=== PATIENT | female | born 1965 | race Caucasian/White ===

== ENCOUNTER → 2025-02-15 15:58 | Outpatient (BNVA) | payer SELFPAY | PROVIDERS: PCP Nurse Practitioner Family; Visit Provider Orthopaedic Surgery | DX: S22.080A Wedge compression fracture of T11-T12 vertebra, initial encounter for closed fracture (principal); S32.020A Wedge compression fracture of second lumbar vertebra, initial encounter for closed fracture; X58.XXXA Exposure to other specified factors, initial encounter | CPT/HCPCS: 72072; 72100 ==

== ENCOUNTER 2025-03-01 11:04 | Outpatient (CLI) | payer SELFPAY ==
--- NOTE | 2025-03-01 10:30 | CT_ITS ---
WS: [id number] CT ABDOMEN WITHOUT CONTRAST HISTORY: abdomen pain Contiguous single phase 5 mm axial imaging performed to the abdomen. Oral contrast has not been provided. Coronal and sagittal reformats are submitted. All CT scans at [facility] use at least one of these dose optimization techniques: automated exposure control; mA and/or kV adjustment per patient size (includes targeted exams where dose is matched to clinical indication); or iterative reconstruction. IV CONTRAST: None Oral contrast: No DLP: 130.43 mGy.cm COMPARISON: None available. Lower thorax: Hyperinflated lung bases with centrilobular emphysema. Mild pleural thickening along the RIGHT diaphragmatic surface. No mass or pneumonia. Heart is normal size. Moderate sized hiatal hernia. Liver/biliary system: Normal size with no intrahepatic dilatation. Gallbladder: Normal. No gallstones or wall thickening. No pericholecystic fluid. Pancreas: Normal size pancreas and pancreatic duct. No adjacent inflammation. Spleen: Normal size spleen. No mass or infarct. Adrenal glands: Normal. Right kidney: Normal. Left kidney: Normal. Aorta: Mild atherosclerosis with no aneurysm. Lymphadenopathy: None. Free fluid: None. GI tract: GI tract within the abdomen is negative. No obstruction. Abdominal wall: Unremarkable abdominal wall. No hernia. Visualized osseous structures: Severe osteopenia and degenerative changes in the thoracolumbar spine. Compression fractures at T11, L1 and L2. Retropulsion of L1 by 5 mm with encroachment upon the ventral thecal sac, greatest to the RIGHT. Nondisplaced fracture posterior medial RIGHT T11 rib. Additional fracture suspected involving the base of the pedicle LEFT T11 vertebral body. Facet joint displacement may be present on the LEFT at T10-11. Thoracic spine CT is also been requested. Additional multiple left-sided rib fractures including sixth, seventh, eighth and 10th ribs. CT/CT abdomen wo con [id number] IMPRESSION: 1. No acute abdominal or pelvic abnormalities. 2. No visualized GI tract obstruction within the abdomen. 3. No renal obstruction. 4. Osteopenia with advanced degenerative changes in the thoracolumbar spine. 5. Compression fractures at T11, L1 and L2. Retrolisthesis of L1 by 5 mm encro aching upon the thecal sac. 6. Fracture at the base of the LEFT T11 pedicle. Possible partial subluxation of the facet joint at T10-11 on the LEFT. 7. Multiple rib fractures as described above.
--- NOTE | 2025-03-01 10:30 | CTR_ITS ---
PROCEDURE INFORMATION: Exam: CT Thoracic Spine Without Contrast Exam date and time: 03/01/2025 11:39 AM Age: 60 years old Clinical indication: Condition or disease; Other: Compression fracture TECHNIQUE: Imaging protocol: Computed tomography of the thoracic spine without contrast. Radiation optimization: All CT scans at this facility use at least one of these dose optimization techniques: automated exposure control; mA and/or kV adjustment per patient size (includes targeted exams where dose is matched to clinical indication); or iterative reconstruction. COMPARISON: CR XR thoracic spine 3V* [id number] 02/15/2025 4:00 PM RADIATION DOSE METRICS: Total DLP (mGy-cm): 358.12 FINDINGS: Bones/joints: There is compression deformity involving the T9 superior endplate. No significant retropulsed bony fragment. There is T10 vertebral body inferior endplate compression deformity. No significant retropulsed bony fragment. There is a T11 compression fracture. There is a questionable lytic lesion involving the T11 vertebral body. There is a loss of posterior vertebral body cortex. There is a 4 mm retropulsed bony fragment. There are fractures involving bilateral pedicles. Neural foraminal narrowing is seen at the T11-12 level. chronic appearing L1 compression deformity is seen. Soft tissues: Unremarkable. Vasculature: Mild calcified atherosclerotic changes are seen in the thoracic aorta. Lymph nodes: Shotty mediastinal lymph nodes. Esophagus: There is esophageal wall thickening diffusely. CT/CT thoracic spin wo con* [id number] IMPRESSION: 1. Questionable pathological compression fracture involving the T11 vertebral body with a 4 mm retropulsed bony fragment. Bilateral pedicle fractures. Bilateral neural foraminal narrowing at T11-12 level. 2. Age indeterminate compression deformities involving the T9 and T10 vertebral bodies as described. Clinical correlation is advised. If indicated, MRI can be obtained for further evaluation. 3. Mild calcified atherosclerotic changes are seen in the thoracic aorta. 4. There is esophageal wall thickening diffusely. Esophagitis or underlying mucosal lesion can not be excluded. Clinical correlation is advised.
== END 2025-03-01 11:05 | disposition home or self-care (01) ==
LOC: RAD 11:04
PROVIDERS: PCP Nurse Practitioner Family; Visit Provider Orthopaedic Surgery
DX: S22.080A Wedge compression fracture of T11-T12 vertebra, initial encounter for closed fracture (principal); S32.020A Wedge compression fracture of second lumbar vertebra, initial encounter for closed fracture; S32.030A Wedge compression fracture of third lumbar vertebra, initial encounter for closed fracture; S22.42XA Multiple fractures of ribs, left side, initial encounter for closed fracture; I70.0 Atherosclerosis of aorta; M85.88 Other specified disorders of bone density and structure, other site; X58.XXXA Exposure to other specified factors, initial encounter
CPT/HCPCS: 72128; 74150

== ENCOUNTER → 2025-03-06 12:36 | Outpatient (BNVA) | payer SELFPAY | PROVIDERS: PCP Nurse Practitioner Family; Visit Provider Orthopaedic Surgery | DX: Z01.818 Encounter for other preprocedural examination (principal) | CPT/HCPCS: 36415; 80053; 85025 ==

== ENCOUNTER 2025-03-07 18:25 | Inpatient (IN) | payer SELFPAY ==
--- OUTSIDE RECORDS SUMMARY | 2018-07-07 06:36 | XMS_ITS | Continuity of Care Document ---
Author Organization [facility] Address [address] [place] [address] Phone Care Team Providers Care Collator Operator Name Role Phone Valerie WYNNE, Odell Unavailable Unavailabl e Advance Directives Directive Yes / No Effective Date File Name No Information Encounters Encounter Description Practice Location Reason(s) For Visit Diagnoses Date Provider Providers Copied on Encounter [facility], [address] [facility], [place], [place], [id number], [place] tel:[phone] [facility] No Information 0-201 9 Valerie Bain . [address], [address], [place], [place], [id number] , [place]. tel:[phone] Family History Family Member Type Diagnosis Age At Onset No Information Payers Payer name Insurance type Covered democrat ID Authoriza tion(s) No Information Social History Type Description Quantity Date Captured Comments Sex Male Smoking Status No Information Chief Complaint And Reason For Visit No Information Reason For Referral Reason For Referral No Information History Of Present Illness Encounter Date Complaint History Of Prese nt Illness No Information Functional Status Date Functional Assessmen t No Information Instructions Date Instruction Additional Infor mation No Information Assessments Type Assessment Date No Information Patient Care Teams Name Effective Dates (start - stop) Status Members No Information
--- OUTSIDE RECORDS SUMMARY | 2018-07-07 06:36 | XMS_ITS | Continuity of Care Document ---
Author Organization [facility] Address [address] [place] [address] Phone Care Team Providers Care Customer Service Attendant Name Role Phone Valerie WYNNE, Odell Unavailable Unavailabl e Advance Directives Directive Yes / No Effective Date File Name No Information Encounters Encounter Description Practice Location Reason(s) For Visit Diagnoses Date Provider Providers Copied on Encounter [facility], [address] [facility], [place], [place], [id number], [place] tel:[phone] [facility] [place] No Information [phone] Valerie Bain . [address], [address], [place], [place], [address] , [place]. tel:[phone] Family History Family Member Type Diagnosis Age At Onset No Information Payers Payer name Insurance type Covered constitution party ID Authoriza tion(s) No Information Social History [...]
[2025-03-07] VITALS (16 sets, daily range): BP systolic 92–122; BP diastolic 57–87; PULSE 68–94; RESP 10–18; TEMP 36.1–36.4; O2SAT 98–100; BMI 20.7
--- NOTE | 2025-03-07 | SC_ITS ---
WS: [id number] INTRAOPERATIVE TECHNIQUE: 3 Spot fluoroscopic images for intraoperative purposes. FLUOROSCOPY TIME: 24.9 seconds CLINICAL INFORMATION: OR PICS FINDINGS: Images obtained for intraoperative thoracic fusion and kyphoplasty SC/C-arm FL for Kyphoplasty IMPRESSION: Images obtained for intraoperative purposes.
--- NOTE | 2025-03-07 10:25 | XR_ITS ---
WS: [id number] INTRAOPERATIVE TECHNIQUE: 8 Spot fluoroscopic images for intraoperative purposes. FLUOROSCOPY TIME: 25 seconds CLINICAL INFORMATION: or pic, fusion FINDINGS: Images obtained for intraoperative spinal fusion purposes XR/XR thoracic spine 2V [id number] IMPRESSION: Images obtained for intraoperative purposes.
--- NOTE | 2025-03-07 11:40 | XR_ITS ---
WS: [id number] INTRAOPERATIVE TECHNIQUE: 2 Spot fluoroscopic images for intraoperative purposes. FLUOROSCOPY TIME: 38 seconds CLINICAL INFORMATION: T 11 BIOPSY FINDINGS: Intraoperative imaging for thoracic fusion and T11 biopsy XR/XR thoracic spine 2V [id number] IMPRESSION: Images obtained for intraoperative purposes.
[2025-03-07 13:32] LABS: Hematocrit 40.7 % (36-47); Hemoglobin 14.20 g/dL (11.27-16.99); Mean Corpuscular HGB Conc 34.9 g/dL (30-55); Mean Corpuscular Hemoglobin 33.7 pg (27-33); Mean Corpuscular Volume 96.7 fl (85-98); Nucleated Red Blood Cells % 0 %; Platelet Count 469 10^3/cmm (157-399); Red Blood Count 4.21 10^6/uL (3.85-5.65); White Blood Count 14.29 10^3/uL (3.29-11.43)
[2025-03-07 13:54] LABS: Alanine Aminotransferase 8 U/L (0-33); Albumin Level 2.9 g/dL (3.5-5.2); Alkaline Phosphatase 148 U/L (35-105); Anion Gap 15.7 (5-19); Aspartate Amino Transferase 17 U/L (0-32); Blood Urea Nitrogen 3 mg/dL (8-23); Calcium 8.6 mg/dL (8.5-10.5); Carbon Dioxide 24 mmol/L (22-29); Chloride 100 mmol/L (98-107); Creatinine Clr Calc Pharmacy 134.2991; Globulin 3.3 g/dL (1.3-4.6); Glucose 86 mg/dL (65-115); Osmolality Calculated 278 mOsm/kg (285-295); Potassium 3.7 mmol/L (3.5-5.1); Sodium 136 mmol/L (136-145); Total Protein 6.2 g/dL (6.6-8.7)
--- NOTE | 2025-03-07 13:56 | ANES.PREANE2 ---
Pre-Anesthetic Assessment Height/Weight: Height 1.65 m Weight 56.699 kg Temp Pulse Resp BP Pulse Ox O2 Del Method 97.3 F L 94 18 122/87 100 Room Air 03/07/25 12:15 03/07/25 12:15 03/07/25 12:15 03/07/25 12:15 03/07/25 12:15 03/07/25 12:15 Preop Diagnosis: T11 fracture Operation Date: 03/07/25 13:20 Proposed Procedures p Thoracic Fusion(Not Applicable) - To Zamora DO s Lumbar Fusion(Not Applicable) - To Zamora DO s Spine Decompression Thoracic Spine Decompression(Not Applicable) - To Zamora DO s Thoracic Kyphoplasty(Not Applicable) - To Zamora DO Familial anesthetic complications: None Was Beta Kelly taken within 24 hours: N/A Was Clonidine taken within 24 hours: N/A Last intake: Intake Last Liquid Date 03/06/25 Last Liquid Time 23:30 Last Solid Date 03/06/25 Last Solid Time 17:00 Social Alcohol (Couple beers a day) and No tobacco (Quit a few months ago. Smoked <0.5 ppd.) Exam alert, oriented x 3, clear to auscultation bilaterally and regular rate & rhythm Airway Submandibular: Other (Small mouth opening) Cervical ROM: within normal limits Mallampati: Class II Dentition: full History/ROS No significant history except as noted and No significant complaints Pulmonary Cough CV/HEM Coronary Artery Disease and Hypertension Murmur as a baby. Not present at this time None reported Hepatic None reported GI Gastroesophageal Reflux Disease (Occ. None today) Metabolic Hyperlipidemia and Thyroid Disease [facility] None reported Neuropsych Anxiety and Depression Anesthetic Plan ASA status: 2 Anesthesia: Anesthesia Evaluation and General Other: A-line ok, ok with blood if needed Risk of > 500 ml blood loss (7ml/kg in children): Yes, adequate IV access and fluids planned Medications/Allergies Home Medications ?Medication ?Instructions ?Recorded ?Confirmed ?Last Taken ?Type amlodipine 5 mg tablet 5 mg PO DAILY 03/06/25 03/07/25 03/06/25 History atorvastatin 20 mg tablet 20 mg PO DAILY 03/06/25 03/07/25 03/06/25 History bupropion HCl 150 mg 24 hr tablet, 150 mg PO QAM 03/06/25 03/07/25 03/06/25 History extended release (Wellbutrin XL) citalopram 40 mg tablet 40 mg PO DAILY 03/06/25 03/07/25 03/06/25 History ergocalciferol (vitamin D2) 1,250 1,250 mcg PO Q7D 03/06/25 03/07/25 03/06/25 History mcg (50,000 unit) capsule (Vitamin D2) levothyroxine 150 mcg tablet 150 mcg PO DAILY 03/06/25 03/07/25 03/06/25 History Allergies Allergy/AdvReac Type Severity Reaction Status Date / Time No Known Allergies Allergy Verified 03/07/25 12:27 [facility] Anesthesia Social History Smoking and tobacco/nicotine status: never used tobacco/nicotine Data Anesthesia 03/07/25 13:15 03/07/25 13:15 Short CBC 03/07/25 Range/Units 13:15 WBC 14.29 H (3.29-11.43) 10^3/uL Hgb 14.20 (11.27-16.99) g/dL Hct 40.7 (36-47) % MCV 96.7 (85-98) fl Plt Count 469 H (157-399) 10^3/cmm Neut % (Auto) 64.6 % Neut # (Auto) 9.25 H (1.8-7.7) 10^3/uL BMP 03/07/25 13:15 Sodium 136 Potassium 3.7 Chloride 100 Carbon Dioxide 24 BUN 3 L Creatinine 0.4 L Glucose 86 Calcium 8.6 Liver Function 03/07/25 Range/Units 13:15 Total Bilirubin 0.6 (0.15-1.2) mg/dL AST 17 (0-32) U/L ALT 8 (0-33) U/L Alkaline Phosphatase 148 H (35-105) U/L Albumin 2.9 L (3.5-5.2) g/dL
--- NOTE | 2025-03-07 14:09 | W.PM.OPSUD ---
Surgery/Procedure H&P Update DATE OF PROCEDURE: March 07, 2025 DATE H&P PERFORMED: 03/06/25 H&P UPDATE INFORMATION: I have reviewed H&P completed within last 30 days, I have examined patient prior to procedure and No changes to prior documentation PREOP DIAGNOSIS: T11 fracture PLANNED PROCEDURE: Operation Date: 03/07/25 13:20 Proposed Procedures p Thoracic Fusion(Not Applicable) - DO chris Eugene Lumbar Fusion(Not Applicable) - DO chris Eugene Spine Decompression Thoracic Spine Decompression(Not Applicable) - DO chris Eugene Thoracic Kyphoplasty(Not Applicable) - To Zamora DO
[2025-03-07] MEDS: ceFAZolin 2,000 mg SDV 2000 MG IVP ×2 (14:25→21:52)
--- NOTE | 2025-03-07 15:17 | ANES.PREANE2 ---
Pre-Anesthetic Assessment Height/Weight: Height 1.65 m Weight 56.699 kg Temp Pulse Resp BP Pulse Ox O2 Del Method 97.3 F L 94 18 122/87 100 Room Air 03/07/25 12:15 03/07/25 12:15 03/07/25 12:15 03/07/25 12:15 03/07/25 12:15 03/07/25 13:57 Preop Diagnosis: T11 fracture Operation Date: 03/07/25 13:20 Proposed Procedures p Thoracic Fusion(Not Applicable) - To Zamora DO s Lumbar Fusion(Not Applicable) - To Zamora DO s Spine Decompression Thoracic Spine Decompression(Not Applicable) - To Zamora DO s Thoracic Kyphoplasty(Not Applicable) - To Zamora DO Last intake: Intake Last Liquid Date 03/06/25 Last Liquid Time 23:30 Last Solid Date 03/06/25 Last Solid Time 17:00 Social No alcohol and No tobacco Airway Submandibular: Other (limited) Cervical ROM: within normal limits Mallampati: Class III Dentition: chipped Pulmonary None reported CV/HEM Hypertension GI Gastroesophageal Reflux Disease Metabolic Hyperlipidemia and Thyroid Disease (hypo) Musc/skel Lower Back Pain, Osteoarthritis/DJD and Weakness Anesthetic Plan ASA status: 2 Anesthesia: General (A-line and large bore IV access) Medications/Allergies Home Medications ?Medication ?Instructions ?Recorded ?Confirmed ?Last Taken ?Type amlodipine 5 mg tablet 5 mg PO DAILY 03/06/25 03/07/25 03/06/25 History atorvastatin 20 mg tablet 20 mg PO DAILY 03/06/25 03/07/25 03/06/25 History bupropion HCl 150 mg 24 hr tablet, 150 mg PO QAM 03/06/25 03/07/25 03/06/25 History extended release (Wellbutrin XL) citalopram 40 mg tablet 40 mg PO DAILY 03/06/25 03/07/25 03/06/25 History ergocalciferol (vitamin D2) 1,250 1,250 mcg PO Q7D 03/06/25 03/07/25 03/06/25 History mcg (50,000 unit) capsule (Vitamin D2) levothyroxine 150 mcg tablet 150 mcg PO DAILY 03/06/25 03/07/25 03/06/25 History Allergies Allergy/AdvReac Type Severity Reaction Status Date / Time No Known Allergies Allergy Verified 03/07/25 12:27 [facility] Anesthesia Social History Smoking and tobacco/nicotine status: never used tobacco/nicotine Data Anesthesia 03/07/25 13:15 03/07/25 13:15 Short CBC 03/07/25 Range/Units 13:15 WBC 14.29 H (3.29-11.43) 10^3/uL Hgb 14.20 (11.27-16.99) g/dL Hct 40.7 (36-47) % MCV 96.7 (85-98) fl Plt Count 469 H (157-399) 10^3/cmm Neut % (Auto) 64.6 % Neut # (Auto) 9.25 H (1.8-7.7) 10^3/uL BMP 03/07/25 13:15 Sodium 136 Potassium 3.7 Chloride 100 Carbon Dioxide 24 BUN 3 L Creatinine 0.4 L Glucose 86 Calcium 8.6 Liver Function 03/07/25 Range/Units 13:15 Total Bilirubin 0.6 (0.15-1.2) mg/dL AST 17 (0-32) U/L ALT 8 (0-33) U/L Alkaline Phosphatase 148 H (35-105) U/L Albumin 2.9 L (3.5-5.2) g/dL Blood Bank 03/07/25 13:15 Blood Type O Positive Rho(D) Type Rh positive Antibody Screen Negative
[2025-03-07 16:08] LABS: Glucose Urine UA Negative (Normal); Nitrate Urine Positive (Negative); Specific Gravity, Urine 1.011 (1.005-1.030)
[2025-03-07 16:16] LABS: Add Urine Microscopic? YES
[2025-03-07] MEDS: lidocaine-epi 1% 20 mL INJ 10 ML INJECTION (16:50)
[2025-03-07] MEDS: heparin, porcine 1,000 unit/mL INJ 10 mL 5000 UNIT IRRIGATION (16:51)
[2025-03-07] MEDS: tobramycin 40 mg/mL SDV 2mL 240 MG XX (16:52)
[2025-03-07 17:26] LABS: UA Slide Review UA Slide Review Perf
--- NOTE | 2025-03-07 18:32 | PM.OP ---
Operative Report Date of procedure: March 07, 2025 Pre-op diagnosis: 1. Unstable T11 flexion distraction injury injury Post-op diagnosis: same Procedure done: 1. T7-L3 posterior spine fusion 2. T7-L3 posterior spine instrumentation 3. Use of computer navigation stereotactic for spine 4. Use of autograft. 5. Bone marrow aspirate from right iliac crest from separate incision 6. T11 kyphoplasty 7. T11 biopsy Surgeon: To Zamora DO Estimated blood loss (mL): 350 Procedure: 1. T7-L3 posterior spine fusion 2. T7-L3 posterior spine instrumentation 3. Use of computer navigation stereotactic for spine 4. Use of autograft. 5. Bone marrow aspirate from right iliac crest from separate incision 6. T11 kyphoplasty 7. T11 biopsy Patient is brought to the operative suite after undergoing anesthesia was placed in the prone position. All areas of impingement were well-padded. Patient was prepped and draped normal sterile fashion. Skin incision was made from T7-L3 posteriorly. Subperiosteal dissection was made out to the transverse processes of T7 down to L3. Once this was complete attention was then brought to getting bone marrow aspirate Bone marrow aspiration was done using the regenerative cell bone marrow aspiration kit. A stab incision was made through the skin and then the all from the region assault kit was placed into the iliac crest. Aspiration was performed and then the polyp was inserted deeper. And then every 1 mm this was rotated to in order to get the most amount of bone marrow aspirate and stem cells. 20 cc of bone marrow aspirate were taken. This was then mixed with the bone marrow graft ostial amp. She was brought to performing the placement of the computer navigation. This was done placing a spinous process clamp on L4. Fiducial was placed. And then the C-arm was brought in and spun around the patient. This information to load in the computer and this was used for placement of the screws. Next attention was brought to placing the pedicle screws. This was done by using high-speed bur to get the starting point started followed by using the gearshift linked to computer navigation planning with the pedicle feeler. And then placing the pedicle screw under computer navigation. This was done at L3 bilaterally L2 bilaterally L1 was skipped because it was compressed so bad. This was a chronic compression fracture. Placed at T12 bilaterally. T11 was skipped because of the compression fracture. Next is placed at T10 bilaterally T9 bilaterally and T8 bilaterally and T7 bilaterally. We like to do up to T7 because there is interspinous ligament damage which I was not comfortable bypassing. Next attention was brought to performing the kyphoplasty. The biplanar fluoroscopy was brought in. The awl was inserted through the left pedicle. At T11. The pulse probe was confirmed to be in good location then aspiration was made using the biopsy 2. Was mostly just fluid was pulled out there was not really much bony material. At this point this was then sent off with biopsy of T11. Next the balloon was inserted. And inflated. And then deflated. And then bone cement was placed this was confirmed to be in good position. Next tension is brought to placing the rods there is replaced from T7 down to L3 bilaterally. Screw caps were placed and torqued in position. Then the lamina and transverse processes were decorticated bilaterally. From T7 down to L3. And then osteo bone graft was placed with calcium sulfate beads with tobramycin and vancomycin and then. Deep drain was placed and wound was closed in a layered fashion with 0 Vicryl 2-0 Vicryl and Monocryl suture. Sterile dressings were applied and patient was transferred to the PACU in stable condition.
--- NOTE | 2025-03-07 19:29 | PC.NURSE ---
Art line remove in right wrist. \pressure applied for > 5 min
[2025-03-08] VITALS (9 sets, daily range): BP systolic 58–110; BP diastolic 40–74; PULSE 70–104; RESP 16–18; TEMP 36.3–36.8; O2SAT 92–99
[2025-03-08] MEDS: ceFAZolin 2,000 mg SDV 2000 MG IVP ×2 (05:37→15:30)
[2025-03-08] MEDS: HYDROcodone-acetaminophen 5-325 mg Tablet PO ×2 (05:43→11:30)
[2025-03-08] MEDS: ATORVASTATIN 10 MG TABLET 20 MG PO (08:15)
--- NOTE | 2025-03-08 10:35 | P.PN_ITS ---
Subjective 2 Subjective: Patient sitting comfortably in chair at this point she is with physical therapy she is able to stand and pivot to the chair. Then got dizzy. Vitals/I&O/Wt Last Vital Signs Temp 97.8 F 03/08/25 07:55 Pulse 102 H 03/08/25 08:54 Resp 18 03/08/25 07:55 BP 104/74 03/08/25 08:54 Pulse Ox 92 03/08/25 07:55 O2 Del Method Room Air 03/08/25 07:55 O2 Flow Rate 6 03/07/25 19:39 03/07/25 03/08/25 03/08/25 22:59 06:59 14:59 Intake Total 1820 / 1820 560 / 2380 240 / 240 Output Total 500 / 500 600 / 1100 350 / 350 Balance 1320 / 1320 -40 / 1280 -110 / -110 Weight last 48 hrs Weight 124 lb 3.2 oz Weight 125 lb Weight 125 lb Physical Exam 2 Narrative: Patient sitting in chair comfortably. 5-5 strength bilateral lower extremities Urinary Catheter Management: Ortega: Cath Placed During This Visit: yes Reason for Continuing Indwelling Catheter: Other Urinary Catheter Date of Insertion: 03/07/25 Urinary Catheter Time of Insertion: 15:10 Data 03/07/25 13:15 03/07/25 13:15 A&P Assessment and plan 1. Compression fracture: Patient is postop day #1 T7-L3 posterior spine fusion with kyphoplasty. Up with physical therapy Possible discharge planning tomorrow. PDMP PDMP Reviewed: Not Reviewed Attestations 2 Medical Necessity Statement*: Pain control Coding Level of Care Code Acute Code for [facility] Fwd Diagnoses Compression fracture
[2025-03-08] MEDS: alum-mag-hydroxide-sime 30 mL UDC PO (11:35)
[2025-03-08] MEDS: sulfamethoxazole-trimeth DS 160-800 mg Tablet 1 TAB PO (16:52)
[2025-03-09 03:19] VITALS: BP 106/67; PULSE 90; RESP 16; TEMP 36.6; O2SAT 99
[2025-03-09] MEDS: HYDROcodone-acetaminophen 5-325 mg Tablet PO ×2 (03:55→17:00)
[2025-03-09 07:47] VITALS: BP 91/55; PULSE 85; RESP 16; TEMP 36.4; O2SAT 94
[2025-03-09] MEDS: ATORVASTATIN 10 MG TABLET 20 MG PO (08:02)
[2025-03-09] MEDS: sulfamethoxazole-trimeth DS 160-800 mg Tablet 1 TAB PO ×2 (08:02→17:00)
--- NOTE | 2025-03-09 08:44 | P.DS_ITS ---
Discharge Providers Date of Admission: 03/07/25 18:25 Date of Discharge: March 09, 2025 Attending Provider at Admission: To Zamora DO Attending Provider at Discharge: To Zamora DO Primary Care Provider: Jannie Camarena Diagnoses at Discharge Discharge Diagnosis 1. Compression fracture: Reason for Visit Reason for Visit: S22.080A Physical Exam Narrative: Patient's pain is controlled. 5-5 strength bilateral lower extremities Urinary Catheter Management: Rotega: Cath Placed During This Visit: yes Reason for Continuing Indwelling Catheter: Other Urinary Catheter Date of Insertion: 03/07/25 Urinary Catheter Time of Insertion: 15:10 Discharge Data Studies Completed and Pending Completed Studies During Hospitalization Category Date Time Status XR thoracic spine 2V 09444 Routine Exams 03/07/25 10:25 Completed XR thoracic spine 2V 12722 Routine Exams 03/07/25 11:40 Completed Pending at discharge Category Date Time Status C-arm Fluoroscopy 03271 Routine Exams 03/07/25 00:00 Taken Hemoglobin and Hematocrit Routine Lab 03/09/25 08:40 Ordered Urine Culture Routine Lab 03/07/25 15:00 Results Pathology: Surgical [PTH] Routine Pth 03/07/25 17:53 Received Radiology Impressions Thoracic Spine X-Ray 03/07/25 11:40 IMPRESSION: Images obtained for intraoperative purposes. Laboratory Results WBC 14.29 10^3/uL (3.29-11.43) H 03/07/25 13:15 RBC 4.21 10^6/uL (3.85-5.65) 03/07/25 13:15 Hgb 14.20 g/dL (11.27-16.99) 03/07/25 13:15 Hct 40.7 % (36-47) 03/07/25 13:15 MCV 96.7 fl (85-98) 03/07/25 13:15 MCH 33.7 pg (27-33) H 03/07/25 13:15 MCHC 34.9 g/dL (30-55) D 03/07/25 13:15 RDW 13.5 % (12.1-15.1) 03/07/25 13:15 Plt Count 469 10^3/cmm (157-399) H 03/07/25 13:15 MPV 8.9 fL (7.4-10.4) 03/07/25 13:15 Neut % (Auto) 64.6 % 03/07/25 13:15 Lymph % (Auto) 25.0 % 03/07/25 13:15 [place] % (Auto) 7.3 % 03/07/25 13:15 Eos % (Auto) 1.3 % 03/07/25 13:15 Baso % (Auto) 1.2 % 03/07/25 13:15 Neut # (Auto) 9.25 10^3/uL (1.8-7.7) H 03/07/25 13:15 Lymph # (Auto) 3.6 10^3/uL (0.8-4.8) 03/07/25 13:15 [place] # (Auto) 1.0 10^3/uL (0.2-0.9) H 03/07/25 13:15 Eos # (Auto) 0.2 10^3/uL (0.0-0.8) 03/07/25 13:15 Baso # (Auto) 0.2 10^3/uL (0.0-0.1) H 03/07/25 13:15 Nucleated RBC % (auto) 0 % 03/07/25 13:15 Nucleated RBCs # 0.0 /100WBC 03/07/25 13:15 Sodium 136 mmol/L (136-145) 03/07/25 13:15 Potassium 3.7 mmol/L (3.5-5.1) 03/07/25 13:15 Chloride 100 mmol/L (98-107) 03/07/25 13:15 Carbon Dioxide 24 mmol/L (22-29) 03/07/25 13:15 Anion Gap 15.7 (5-19) 03/07/25 13:15 BUN 3 mg/dL (8-23) L 03/07/25 13:15 Creatinine 0.4 mg/dL (0.5-0.9) L 03/07/25 13:15 GFR Calculation 162.8 mL/min (90-130) H 03/07/25 13:15 Glucose 86 mg/dL (65-115) 03/07/25 13:15 POC Glucose 125 mg/dL (70-110) H 03/07/25 20:46 Calculated Osmolality 278 mOsm/kg (285-295) L 03/07/25 13:15 Calcium 8.6 mg/dL (8.5-10.5) 03/07/25 13:15 Total Bilirubin 0.6 mg/dL (0.15-1.2) 03/07/25 13:15 AST 17 U/L (0-32) 03/07/25 13:15 ALT 8 U/L (0-33) 03/07/25 13:15 Alkaline Phosphatase 148 U/L (35-105) H 03/07/25 13:15 Total Protein 6.2 g/dL (6.6-8.7) L 03/07/25 13:15 Albumin 2.9 g/dL (3.5-5.2) L 03/07/25 13:15 Globulin 3.3 g/dL (1.3-4.6) 03/07/25 13:15 Urine Color [place] (Yellow) A 03/07/25 15:00 Urine Appearance Cloudy (CLEAR) A 03/07/25 15:00 Urine pH 6.0 (5-7) 03/07/25 15:00 Ur Specific [place] 1.011 (1.005-1.030) 03/07/25 15:00 Urine Protein Trace (Negative) A 03/07/25 15:00 Urine Glucose (UA) Negative (Normal) 03/07/25 15:00 Urine Ketones Trace (Negative) 03/07/25 15:00 Urine Blood Negative (Negative) 03/07/25 15:00 Urine Nitrate Positive (Negative) A 03/07/25 15:00 Urine Bilirubin Negative (Negative) 03/07/25 15:00 Urine Urobilinogen 1.0 mg/dL (Negative) 03/07/25 15:00 Ur Leukocyte Esterase 3+ (Negative) A 03/07/25 15:00 Urine RBC 0-2 /hpf (0-2) 03/07/25 15:00 Urine WBC >100 /hpf (0-5) H 03/07/25 15:00 Ur Squamous Epith Cells 0-5 /hpf (0-5) 03/07/25 15:00 Amorphous Sediment Not Reportable 03/07/25 15:00 Urine Bacteria 4+ /hpf (NONE) H 03/07/25 15:00 Hyaline Casts 5.36 /lpf 03/07/25 15:00 Blood Type O Positive 03/07/25 13:15 Rho(D) Type Rh positive 03/07/25 13:15 Antibody Screen Negative 03/07/25 13:15 Vitals Last Vital Signs Temp 97.5 F L 03/09/25 07:47 Pulse 85 03/09/25 07:47 Resp 16 03/09/25 07:47 BP 91/55 03/09/25 07:47 Pulse Ox 94 03/09/25 07:47 O2 Del Method Room Air 03/09/25 03:19 O2 Flow Rate 6 03/07/25 19:39 Discharge Plan Discharge Patient Disposition: Home Condition: Stable Prescriptions: New hydrocodone-acetaminophen 5-325 mg tablet 1 - 2 tab PO .Q4-6H Qty: 40 0RF Continued atorvastatin 20 mg Tablet 20 mg PO DAILY citalopram 40 mg Tablet 40 mg PO DAILY amlodipine 5 mg Tablet 5 mg PO DAILY levothyroxine 150 mcg Tablet 150 mcg PO DAILY bupropion HCl [Wellbutrin XL] 150 mg Tablet Extended Release 24 Hr 150 mg PO QAM ergocalciferol (vitamin D2) [Vitamin D2] 1,250 mcg (50,000 unit) Capsule 1,250 mcg PO Q7D Other Ambulatory Orders: DME: Leonel (Order) Location: None Selected Ordered By: To Zamora Referrals: To Zamora, [Physician, Orthopedics] - 03/22/25 8:45 am Jannie Camarena [Primary Care Provider, Family Practice] Discharge Diet: Advance as tolerated Discharge Activity: Limit activity as instructed Patient Instructions: Acute Wound Care (DC), Opioid Safety, Post Anesthesia C are, Patient Portal & Gonzalo Instructions Activity Restrictions/Additional Instructions: Thank you for choosing [facility] for your care! The following is a list of instructions, from your provider, to follow upon your discharge to ensure you have the optimal recovery from your recent injury or surgery. Follow-up care is a silva part of your treatment and safety. Be sure to make and go to all appointments, and call your doctor if you are having problems. If you do not already have a follow-up appointment made, call Dr. Zamora's office in the next 1-3 days to make follow up appointment for 1 weeks at [phone]. It is also a good idea to know your test results and keep a list of the medicines you take. Medications will be prescribed for you at your provider?s discretion. These medications are to be used as instructed;if they are taken more often that prescribed they will not be refilled early and in most cases will not be refilled at all. > When a refill is needed,you should contact our office 2-3 business days beforeyour prescription runs out. Medications will NOTbe refilled by contact center assistant providers after hours! > Many pain medications contain Tylenol (Acetaminophen). Do not consume more than 4,000 mg of Tylenol per day in total with any combination of medications. > Pain medications can cause constipation. Please use an over the counter stool softener as directed, while taking pain medications. Consult your local pharmacist with questions or recommendations on stool softeners. If constipation persists, contact our office or your primary care provider. > While under our care,you are not to receive pain medications or other controlled substances from any other provider unless our office is notified and approves. Any attempts to do so will result in refusal to prescribe any further pain medications and possible dismissal from our practice. ? Keep dressing on until you see you in 1 week. ? Walking is essential for the healing process after surgery. We would like you to slowly advance your walking. This should be done on relatively flat clear ground (inside or out) or can be done on a treadmill. Remember this goal does not have to happen all at once, slowly increase your distance and duration. This can be broken into more more than one walk per day as tolerated. Patients who walk as directed after surgery rarely require Physical Therapy. In the unlikely event this issue arises your provider will direct hospital staff to make the appropriate arrangements. ? No lifting over 5 pounds {a gallon of milk) or bending/twisting until further notice. Each of these activities places an unnecessary amount of stress onto the body and can impede the delicate healing process. > Instead of bending at the waist, keep your back straight and bend at the knees. > Instead of twisting your torso, keep your back straight and turn your entire body with your feet. ? You may sleep in any position which makes you comfortable.Many patients find comfort sleeping in a reclining chair. It is not abnormal to have difficulty sleeping for the first several weeks following your surgery. We recommend trying Benadryl or Tylenol PM as directed to help with your sleeping difficulties. Both medications are over the counter and available without prescription. ? NO SMOKING!!!Smoking dramatically increases the probability of developing postoperative wound infections. ? Common complaints after lumbar and/or thoracic spine surgery include, but are not limited to: numbness and/or tingling in the legs, pain around the incision and surrounding tissues, muscle spasms, or stiffness of the middle to low back. Contact our office if these symptoms persist or if an acute change occ urs. ? No driving for the first 3-5 days, and not while taking narcotics until seen at your follow-up appointment and cleared.There are no restrictions for riding on short trips, however if you take a longer trip, arrangements should be made to make regular stops to get out of the vehicle and stretch . ? Swelling is an unfortunate event that will take place with any surgery and is the primary source of your postoperative discomfort. While walking and regular approved activities helps control inflammation, there are additional steps you can take to minimize swelling. > Place ice over the surgical site and surrounding tissue for twenty minutes, followed by applying a low/medium heat (heating pad) for an additional twenty minutes every 1-2 hours as needed for pain relief. > You may use of over the counter anti-inflammatory medications (Ibuprofen, Motrin, Aleve, Advil, etc) as directed on the package label. These types of medicines will significantly reduce the amount of discomfort you experience after surgery from swelling. It should be noted that if you have an allergy to any of these medications, or a history of ulcers or kidney disease you should consult your primary care provider prior to starting these medications. Discharge Attestations Time Spent in Discharge Care*: less than 30 min Quality Metrics Clinical Quality Measures [ No reported AMI, CVA or VTE this stay] Coding Level of Care Code Acute Code for Chg Fwd Diagnoses Compression fracture
[2025-03-09 09:20] LABS: Hematocrit 26.6 % (36-47); Hemoglobin 8.50 g/dL (11.27-16.99)
--- NOTE | 2025-03-09 11:30 | PC.NURSE ---
This nurse removed hemovac drain from right lower back at 1130am. Site was covered with sterile 2x2 and tegaderm. Pt tolerated well with no complications.
[2025-03-09 12:03] VITALS: BP 87/56; PULSE 100; RESP 17; TEMP 36.3; O2SAT 93
[2025-03-09] MEDS: iron sucrose 200 MG in sodium chloride 0.9% (100 ml) 100 ML 220 MG IV (16:13)
[2025-03-09 18:25] VITALS: BP 89/59; PULSE 96; RESP 16; TEMP 36.4; O2SAT 96
[2025-03-09 20:00] VITALS: BP 115/74; PULSE 98; RESP 18; TEMP 36.4; O2SAT 98
[2025-03-10] VITALS: BP 97/65; PULSE 93; RESP 17; TEMP 36.6; O2SAT 96
[2025-03-10 04:00] VITALS: BP 93/61; PULSE 88; RESP 19; TEMP 36.4; O2SAT 94
[2025-03-10 04:30] LABS: Hematocrit 23.0 % (36-47); Hemoglobin 7.70 g/dL (11.27-16.99)
[2025-03-10 07:29] VITALS: BP 100/66; PULSE 90; RESP 18; TEMP 36.5; O2SAT 98
[2025-03-10] MEDS: ATORVASTATIN 10 MG TABLET 20 MG PO (08:42)
[2025-03-10] MEDS: sulfamethoxazole-trimeth DS 160-800 mg Tablet 1 TAB PO (08:43)
[2025-03-10] MEDS: HYDROcodone-acetaminophen 5-325 mg Tablet PO (09:24)
== END 2025-03-10 12:00 | disposition home or self-care (01) | DRG 458 ==
LOC: MEDSURG 23:06
PROVIDERS: Student in an Organized Health Care Education/Training Program; Admitting Provider Orthopaedic Surgery; PCP Nurse Practitioner Family; Visit Provider Orthopaedic Surgery
PROC: 0RG7071 Fusion of 2 to 7 Thoracic Vertebral Joints with Autologous Tissue Substitute, Posterior Approach, Posterior Column, Open Approach (ICD-10-PCS; principal; 2025-03-07 12:50)
PROC: 0PS43ZZ Reposition Thoracic Vertebra, Percutaneous Approach (ICD-10-PCS; CPT 22513; 2025-03-07 12:50)
DX: M48.54XG Collapsed vertebra, not elsewhere classified, thoracic region, subsequent encounter for fracture with delayed healing (principal); K21.9 Gastro-esophageal reflux disease without esophagitis; E78.5 Hyperlipidemia, unspecified; E03.9 Hypothyroidism, unspecified
CPT/HCPCS: 36415; 36416; 51702; 72070; 76000; 80053; 81001; 82962; 85014; 85018; 85025; 86850; 86900; 87077; 87086; 87186; 88307; 88311; 97110; 97116; 97161; 97530; A4216; C1713; G0378; J0131; J0330; J0690; J1100; J1171; J1644; J1756; J1885; J2371; J2405; J2704; J3260; J3373; J3490; J7040; J7120; J9999; L8699

== ENCOUNTER → 2025-04-24 13:28 | Outpatient (BNVA) | payer SELFPAY | PROVIDERS: PCP Nurse Practitioner Family; Visit Provider Orthopaedic Surgery | DX: Z98.890 Other specified postprocedural states (principal); Z98.1 Arthrodesis status | CPT/HCPCS: 72072; 72100 ==

== ENCOUNTER → 2025-06-05 13:38 | Outpatient (BNVA) | payer BC, MEDICAID, SELFPAY | PROVIDERS: PCP Nurse Practitioner Family; Visit Provider Orthopaedic Surgery | DX: Z98.890 Other specified postprocedural states (principal); Z98.1 Arthrodesis status | CPT/HCPCS: 72072; 72100 ==